=== PATIENT | female | born 1940 | race Caucasian/White ===

== ENCOUNTER 2020-05-13 11:31 | Outpatient (NON) | payer MEDICARE, BC, SELFPAY ==
[2020-05-13 23:21] LABS: SARS-CoV-2 RNA PCR Negative
== END 2020-05-13 11:32 ==
PROVIDERS: PCP Family Medicine; Visit Provider Family Medicine
DX: R09.89 Other specified symptoms and signs involving the circulatory and respiratory systems (principal); Z20.828 Contact with and (suspected) exposure to other viral communicable diseases
CPT/HCPCS: 87635; C9803; U0003

== ENCOUNTER 2020-08-05 10:18 | Emergency (ER) | payer MEDICARE, BC, SELFPAY ==
[2020-08-05 10:32] VITALS: BP 156/87; PULSE 157; RESP 20; TEMP 36.8; O2SAT 97
--- NOTE | 2020-08-05 10:38 | ED.GENADULT ---
HPI - General Adult General Chief complaint: Unspecified Stated complaint: Weakess Time Seen by Provider: 08/05/20 10:25 Source: patient and family Mode of arrival: ambulatory Limitations: no limitations History of Present Illness HPI narrative: Kristie Reyes is a 80 yo female with a H stroke, HTN, who comes to express care with complaints of chest pain rated at 6 8 out of 10 shortness of breath and profound weakness. This the symptoms started 1 hour ago. Patient will be transferred to an ER for further evaluation Her who is here as his daughter but is unable to give information that is helpful in the assessment of the patient. Patient took 81 mg of ASA this morning along with her blood pressure medication and her other medications which we are unclear what her medications are Related Data Home Medications Medication Instructions Recorded Confirmed alprazolam 0.25 mg tablet 0.25 mg PO DAILY 03/03/20 07/07/20 atorvastatin 40 mg tablet 40 mg PO DAILY 03/03/20 07/07/20 chlorthalidone 25 mg tablet 25 mg PO DAILY 03/03/20 07/07/20 clopidogrel 75 mg tablet 75 mg PO DAILY 03/03/20 07/07/20 diphenhydramine HCl 25 mg capsule 25 mg PO TID PRN 03/03/20 07/07/20 esomeprazole magnesium 20 mg 20 mg PO DAILY 03/03/20 07/07/20 capsule,delayed release esomeprazole magnesium 40 mg 40 mg PO DAILY 03/03/20 07/07/20 capsule,delayed release hydralazine 100 mg tablet 100 mg PO BID 03/03/20 07/07/20 lisinopril 40 mg tablet 40 mg PO DAILY 03/03/20 07/07/20 metoprolol succinate 100 mg 100 mg PO DAILY 03/03/20 07/07/20 tablet,extended release 24 hr nifedipine 30 mg tablet,extended 30 mg PO DAILY 03/03/20 07/07/20 release potassium chloride 20 mEq oral 20 meq PO DAILY 03/03/20 07/07/20 packet Allergies Allergy/AdvReac Type Severity Reaction Status Date / Time hydromorphone Allergy Unknown Unknown Verified 03/03/20 08:13 morphine Allergy Unknown Unknown Verified 03/03/20 08:13 Penicillins Allergy Unknown Unknown Verified 03/03/20 08:13 Quinolones Allergy Unknown RASH Verified 03/03/20 08:13 Sulfa (Sulfonamide Allergy Unknown RASH Verified 03/03/20 08:13 Antibiotics) trimethobenzamide Allergy Unknown CAN NOT Verified 03/03/20 08:13 REMEMBER codeine AdvReac Unknown N/V Verified 03/03/20 08:13 cyclobenzaprine AdvReac Unknown Nausea and Verified 10/30/18 06:21 Vomiting hydrocodone AdvReac Unknown GASTRIC Verified 10/30/18 05:36 DISTRESS/ NAUSEA/VOMITING meperidine AdvReac Unknown NAUSEA/VOMI Verified 10/30/18 05:36 TING Review of Systems Review of Systems: Narrative: CONSTITUTIONAL: Denies fever, chills, sweats. EYES: Denies visual changes, redness, discharge. ENT: Denies rhinorrhea, congestion, sore throat, otalgia. CARDIOVASCULAR: Has chest pain, palpitations, edema. RESPIRATORY: Denies dyspnea, has shortness of breath, no wheezing, cough GASTROINTESTINAL: Denies abdominal pain, nausea, vomiting, diarrhea. GENITOURINARY: Denies dysuria, hematuria, abnormal discharge SKIN: Denies rash or itching. NEUROLOGIC: Denies numbness, or focal weakness. PSYCHIATRIC: Denies anxiety or depression. [facility] Past Medical History Medical History Heel spur (~1992) Removal of History of cardiac disorder Hypertension Obesity due to excess calories Stroke Surgical History Surgical History Cataract extraction status, left eye (~05/10/06) H/O total hysterectomy (~1968) History of bilateral knee replacement (~2002) History of hammertoe correction (~09/21/06) Bilateral History of hernia repair (~08/20/15) Paraesophageal History of partial hysterectomy (~1962) History of thumb surgery (~04/26/12) Rt History of thumb surgery (~09/10/09) Family History Family History Other Heart disease Hypertension Social History Social History
== END 2020-08-05 10:40 | disposition short-term general hospital (02) ==
PROVIDERS: Emergency Provider Nurse Practitioner; PCP Family Medicine
DX: R07.89 Other chest pain (principal); I10 Essential (primary) hypertension; Z86.73 Personal history of transient ischemic attack (TIA), and cerebral infarction without residual deficits; Z68.32 Body mass index [BMI] 32.0-32.9, adult; E66.09 Other obesity due to excess calories; Z98.42 Cataract extraction status, left eye; Z96.653 Presence of artificial knee joint, bilateral
CPT/HCPCS: 99215; G0463

== ENCOUNTER → 2021-01-20 11:37 | Outpatient (CLI) | payer MEDICARE, BC, SELFPAY ==
--- NOTE | ~2021-01-20 | MM_ITS ---
EXAMINATION: MM screening lynn BI w siobhan HISTORY: Screening mammogram TECHNIQUE: Craniocaudal and mediolateral oblique 3-D tomosynthesis images were obtained and synthetic 2-D images were generated. CAD analysis was submitted and interpreted. COMPARISON: 08/01/2018 bilateral diagnostic digital mammogram and bilateral Limited breast ultrasound examination bilateral digital screening mammogram BREAST PARENCHYMAL COMPOSITION: The breasts are almost entirely fatty. FINDINGS: There is no evidence of suspicious mass, calcification, or architectural distortion to sugg est malignancy in either breast. There has been no suspicious interval change. IMPRESSION: 1. No mammographic evidence of malignancy. 2. Recommend routine screening mammography in one year. BI-RADS Category 1: Negative Reviewed, dictated and finalized at location A.
== END ==
PROVIDERS: PCP Student in an Organized Health Care Education/Training Program; Visit Provider Student in an Organized Health Care Education/Training Program
DX: Z12.31 Encounter for screening mammogram for malignant neoplasm of breast (principal)
CPT/HCPCS: 77063; 77067

== ENCOUNTER 2021-03-05 13:37 | Outpatient (CLI) | payer MEDICARE, BC, SELFPAY ==
[2021-03-05 14:26] LABS: CRP 1.4 mg/dL (<1.0)
[2021-03-05 15:24] LABS: Erythrocyte Sedimentation Rate 31 mm/hr (0-20)
== END 2021-03-05 13:38 | disposition home or self-care (01) ==
LOC: ANHLAB 13:40
PROVIDERS: PCP Student in an Organized Health Care Education/Training Program; Visit Provider Physician Assistant Surgical
DX: M25.461 Effusion, right knee (principal); M25.462 Effusion, left knee; Z96.653 Presence of artificial knee joint, bilateral
CPT/HCPCS: 36415; 85652; 86140

== ENCOUNTER 2021-03-12 12:38 | Outpatient (NON) | payer MEDICARE, BC, SELFPAY | END 2021-03-12 12:39 | disposition home or self-care (01) | LOC: ANHLAB 12:45 | PROVIDERS: PCP Student in an Organized Health Care Education/Training Program; Visit Provider Orthopaedic Surgery | DX: M25.461 Effusion, right knee (principal); M25.462 Effusion, left knee | CPT/HCPCS: 87070; 87075; 87076; 87205 ==

== ENCOUNTER 2022-05-29 19:44 | Emergency (ER) | payer MEDICARE, BC, SELFPAY ==
--- NOTE | ~2022-05-29 | XR_ITS ---
EXAMINATION: [id number] Exam Date/Time: 05/29/2022 20:55 CDT HISTORY: mid lat/post Rt rib pain s/p fall injury Comparison: None available. RESULT: Lines, tubes, and devices: Left chest pacer with intact leads. Surgical clips over the right upper q uadrant and GE junction. Atrial occlusion device. Lungs and pleura: Senescent changes. Cardiomediastinal silhouette: Atherosclerotic aortic calcification. Other: No acute osseous or upper abdominal finding. IMPRESSION: No acute cardiopulmonary process. No acute right rib fracture detected. Reviewed, dictated and finalized at location K.
[2022-05-29 19:44] VITALS: BP 148/74; PULSE 92; RESP 20; TEMP 36.2; O2SAT 100
--- NOTE | 2022-05-29 20:21 | ED.FALL ---
HPI - Fall General Chief Complaint: Fall Stated Complaint: fall with back pain History of Present Illness HPI Narrative: 81-year-old female with a recent history of CVA presents the emergency room for evaluation of right lateral rib pain following a mechanical fall from ground-level. Patient states that she tripped over the edge of a piece of carpet, landing backwards and hitting a doorknob on the right side of her back. Patient states that she was not able to ambulate following the injury. Reports pain is worse with attempting to move and breathe Related Data Home Medications Medication Instructions Recorded Confirmed atorvastatin 40 mg tablet (Lipitor) 40 mg PO DAILY 03/03/20 08/12/21 chlorthalidone 25 mg tablet 25 mg PO DAILY 03/03/20 08/12/21 clopidogrel 75 mg tablet (Plavix) 75 mg PO DAILY 03/03/20 08/12/21 diphenhydramine HCl 25 mg capsule 25 mg PO TID PRN 03/03/20 08/12/21 (Benadryl) esomeprazole magnesium 40 mg 40 mg PO DAILY 03/03/20 08/12/21 capsule,delayed release (Nexium) lisinopril 40 mg tablet 40 mg PO DAILY 03/03/20 08/12/21 metoprolol succinate 100 mg 100 mg PO DAILY 03/03/20 08/12/21 tablet,extended release 24 hr (Toprol XL) nifedipine 30 mg tablet,extended 30 mg PO DAILY 03/03/20 08/12/21 release potassium chloride 20 mEq oral 20 meq PO DAILY 03/03/20 08/12/21 packet Allergies Allergy/AdvReac Type Severity Reaction Status Date / Time hydromorphone Allergy Unknown Unknown Verified 08/12/21 09:02 morphine Allergy Unknown Unknown Verified 08/12/21 09:02 Penicillins Allergy Unknown Unknown Verified 08/12/21 09:02 Quinolones Allergy Unknown RASH Verified 08/12/21 09:02 Sulfa (Sulfonamide Allergy Unknown RASH Verified 08/12/21 09:02 Antibiotics) trimethobenzamide Allergy Unknown CAN NOT Verified 08/12/21 09:02 REMEMBER codeine AdvReac Unknown N/V Verified 08/12/21 09:02 cyclobenzaprine AdvReac Unknown Nausea and Verified 08/12/21 09:02 Vomiting hydrocodone AdvReac Unknown GASTRIC Verified 08/12/21 09:02 DISTRESS/ NAUSEA/VOMITING meperidine AdvReac Unknown NAUSEA/VOMI Verified 08/12/21 09:02 HAIR Review of Systems Review of Systems: CONSTITUTIONAL: Denies fever, chills, or sweats. EYES: Denies visual changes, redness, or discharge. ENT: Denies rhinorrhea, congestion, sore throat, or otalgia. CARDIOVASCULAR: Denies chest pain, palpitations, or edema. RESPIRATORY: Denies cough or dyspnea. GASTROINTESTINAL: Denies abdominal pain, nausea, vomiting, or diarrhea. GENITOURINARY: Denies dysuria or hematuria. SKIN: Denies rash or itching. MUSCULOSKELETAL: Reports right-sided back pain NEUROLOGIC: Denies headache, numbness, dizziness, or weakness. PSYCHIATRIC: Denies anxiety or depression. [facility] Past Medical History Medical History Heel spur (~1992) Removal of History of cardiac disorder Hypertension Obesity due to excess calories Stroke Surgical History Surgical History Cataract extraction status, left eye (~05/10/06) H/O total hysterectomy (~1968) History of bilateral knee replacement (~2002) History of hammertoe correction (~09/21/06) Bilateral History of hernia repair (~08/20/15) Paraesophageal History of partial hysterectomy (~1962) History of thumb surgery (~04/26/12) Rt History of thumb surgery (~09/10/09) Family History Family History Other Heart disease Hypertension Social History Social History Smoking status: Never smoker Alcohol intake: never Gender identity (if verbalized by the patient): Female Exam Narrative: GENERAL: Well-appearing, well-nourished, no physical limitations, and in no acute distress. HEAD: Normocephalic, atraumatic. EYES: Conjunctivae normal, PERRLA and EOMI. CHEST: Clear to auscult
[2022-05-29 21:44] VITALS: BP 135/63; PULSE 75; RESP 22; O2SAT 97
[2022-05-29] MEDS: ACETAMINOPHEN 500 MG TABLET 1000 MG PO (21:44)
== END 2022-05-29 22:02 | disposition home or self-care (01) ==
PROVIDERS: Emergency Provider Nurse Practitioner Family; PCP Student in an Organized Health Care Education/Training Program
DX: S20.211A Contusion of right front wall of thorax, initial encounter (principal); W01.198A Fall on same level from slipping, tripping and stumbling with subsequent striking against other object, initial encounter; I10 Essential (primary) hypertension; Z86.73 Personal history of transient ischemic attack (TIA), and cerebral infarction without residual deficits; E66.9 Obesity, unspecified; Z68.34 Body mass index [BMI] 34.0-34.9, adult; Z79.02 Long term (current) use of antithrombotics/antiplatelets
CPT/HCPCS: 71101; 99283; A9270